=== PATIENT | male | born 1995 ===

== ENCOUNTER 2017-07-25 03:44 | Emergency (ER) | payer OTHER ==
--- NOTE | 2017-07-25 04:42 | C.PDOC ---
History Of Present Illness 22 y/o male presents with epigastric abdominal pain, started yesterday. pt was seen at [facility] on sat [place]24 morning, , had blood work and ct scan, d/c with pepcid. pt sts he took pepcid, but pain worse tonight. one episode of vomiting in ed, +nausea, no fever or chills. pain is stabbing,non radiating. labwork and ct scan results obtained (with pt's consent) from [facility]; ct scan with finding of possible acute epiploic appendagitis. labs from yesterday were normal. Time Seen by Provider: 07/25/17 04:05 Chief Complaint (Nursing): Abdominal Pain History Per: Patient, Family History/Exam Limitations: no limitations Onset/Duration Of Symptoms: Days (2) Current Symptoms Are (Timing): Worse Severity: Severe Pain Scale Rating Of: 9 Location Of Pain/Discomfort: Epigastric, LUQ Radiation Of Pain To:: None Quality Of Discomfort: Stabbing Associated Symptoms: Vomiting. denies: Fever, Chills, Diarrhea Past Medical History Reviewed: Historical Data, Nursing Documentation, Vital Signs Vital Signs: Last Vital Signs Temp 97.5 F L 07/25/17 03:48 Pulse 81 07/25/17 03:48 Resp 22 07/25/17 03:48 BP 155/73 H 07/25/17 03:48 Pulse Ox 100 07/25/17 06:12 - Medical History PMH: No Chronic Diseases Surgical History: No Surg Hx Family History: States: Unknown Family Hx - Social History Hx Tobacco Use: No Hx Alcohol Use: No Hx Substance Use: No - Immunization History Hx Tetanus Toxoid Vaccination: No Hx Influenza Vaccination: No Hx Pneumococcal Vaccination: No Review Of Systems Constitutional: Negative for: Fever, Chills Cardiovascular: Negative for: Chest Pain Respiratory: Negative for: Cough, Shortness of Breath Gastrointestinal: Positive for: Nausea, Vomiting, Abdominal Pain. Negative for : Diarrhea Genitourinary: Negative for: Dysuria Physical Exam - Physical Exam Appears: Non-toxic, In Acute Distress (writhing in pain on stretcher) Skin: Warm, Dry Head: Atraumatic, Normacephalic Eye(s): bilateral: Normal Inspection Chest: No Deformity, No Tenderness Cardiovascular: Rhythm Regular, No Murmur Respiratory: No Decreased Breath Sounds, No Wheezing Gastrointestinal/Abdominal: Bowel Sounds, Soft, Tenderness (tender in epigastric right and left upper quadrants), No Distention, No Guarding, No Rebound Back: No CVA Tenderness Extremity: No Tenderness, No Swelling Neurological/Psych: Oriented x3, Normal Speech, Normal Cognition, Normal Motor, Normal Sensation ED Course And Treatment - Laboratory Results Result Diagrams: 07/25/17 04:44 07/25/17 04:44 O2 Sat by Pulse Oximetry: 100 Medical Decision Making Medical Decision Making: consent form sent to [facility] requesting pt's ct scan and blood test results from visit on wednesday,. await fax. 647 am pt given protonix, maalox, cmpazine and zofran with little effect. pt given iv toradol and much more comfortable. pt has pain in ruq on re-exam, no muprhys sign. will order abdominal us and s/o to next team with possible surgical consult. Disposition - Disposition Disposition Time: 06:58 Condition: GOOD Forms: [facility] ([place]) - Clinical Impression Clinical Impression: Abdominal pain Physician Patient Turnover Patient Signed Over To: Mayelin Khan Handoff Comments: follow up abdomen ultrasound, re-eval pt for appropriate dispo
[2017-07-25 04:47] LABS: BASO % 0.3 % (0.0-2.0); EOS % 0.2 % (0.0-4.0); HEMOGLOBIN 15.8 g/dL (12.0-18.0); LYMPH # 2.3 K/uL (1.0-4.3); LYMPH % 15.8 % (20.0-40.0); MEAN CELL VOLUME 85.9 fL (80.0-94.0); MEAN CORPUSCULAR HEMOGLOBIN 29.4 pg (27.0-31.0); MEAN CORPUSCULAR HGB CONC 34.2 g/dL (33.0-37.0); MEAN PLATELET VOLUME 8.2 fL (7.2-11.7); MONO # 0.7 K/uL (0.0-0.8); MONO % 4.6 % (0.0-10.0); NEUT # 11.4 K/uL (1.8-7.0); NEUT % 79.1 % (50.0-75.0); RBC 5.39 Mil/uL (4.40-5.90); RED CELL DISTRIBUTION WIDTH 13.3 % (11.5-14.5); WHITE BLOOD COUNT 14.4 K/uL (4.8-10.8)
[2017-07-25 04:58] LABS: ALB/GLOB RATIO 1.2 (1.0-2.1); ALBUMIN 4.8 g/dL (3.5-5.0); ALT/SGPT 35 U/L (21-72); AST/SGOT 27 U/L (17-59); BLOOD UREA NITROGEN 11 mg/dL (9-20); CALCIUM 9.4 mg/dl (8.6-10.4); GFR AFRICAN-AMERICAN > 60; GFR NON-AFRICAN AMERICAN > 60; LIPASE 116 U/L (23-300)
[2017-07-25] MEDS ORDERED: Alum-Mag Hydrox-Simethicone Susp (30 mL) ONE (05:22)
[2017-07-25] MEDS ORDERED: Sucralfate 1 gm/10 ml Oral Susp UD ONE (05:22)
[2017-07-25] MEDS ORDERED: Aluminum Hydroxide/Magnesium Hydroxide Susp (30 mL) PO STA (05:48)
[2017-07-25 06:38] LABS: URINE AMORPHOUS SEDIMENT RARE /ul (<OCC); URINE BILIRUBIN NEGATIVE (NEGATIVE); URINE BLOOD NEGATIVE (NEGATIVE); URINE CLARITY Hazy (Clear); URINE COLOR Yellow (YELLOW); URINE GLUCOSE (UA) NORMAL (Normal); URINE LEUKOCYTE ESTERASE NEG Leu/uL (Negative); URINE PROTEIN NEGATIVE (NEGATIVE); URINE UROBILINOGEN NORMAL mg/dL (0.2-1.0)
[2017-07-25 06:49] LABS: BARBITURATES, UR NEGATIVE (NEGATIVE); BENZODIAZEPINES, UR NEGATIVE (NEGATIVE); OPIATES, UR NEGATIVE (NEGATIVE); PHENCYCLIDINE, UR NEGATIVE (NEGATIVE)
--- NOTE | 2017-07-25 09:02 | US ---
HISTORY: ruq pain, pos epiploic appendagiciits on ct COMPARISON: None. TECHNIQUE: Sonographic evaluation of the right upper quadrant of the abdomen. FINDINGS: LIVER: Measures 14.6 cm in length. Diffusely increased echogenicity of the liver parenchyma suggests diffuse fatty infiltration. No mass. No intrahepatic bile duct dilatation. GALLBLADDER: Gallbladder is mildly distended with cholelithiasis at the neck and mild mural thickening up to 4 mm. No pericholecystic fluid collection, reported sonographic Keene sign or pericholecystic fluid collection. Clinically correlate for potential cholecystitis nevertheless. COMMON BILE DUCT: Measures 5.0 mm. No stones. No dilatation. PANCREAS: The tail of the pancreas is obscured by overlying bowel gas with remainder unremarkable. RIGHT KIDNEY: Measures 11.2 cm in length. Normal echogenicity. No calculus, mass, or hydronephrosis. AORTA: No aneurysmal dilatation. IVC: Unremarkable. OTHER FINDINGS: None . IMPRESSION: 1. Hepatic steatosis suggested. 2. A distended gallbladder is identify with mild mural thickening as well as cholelithiasis at the dependent portion in the neck. No pericholecystic fluid collection or reported sonographic Keene's sign. Clinically correlate nevertheless for potential cholecystitis. 3. Partial imaging of the pancreas.
[2017-07-25 10:54] VITALS: PULSE 99; RESP 18; TEMP 97.9; O2SAT 99
[2017-07-25 11:27] VITALS: BP 102/60
== END 2017-07-25 11:30 | disposition home or self-care (01) ==
LOC: C.ER 03:44
DX: R10.11 Right upper quadrant pain (principal)
CPT/HCPCS: 76705; 80053; 80324; 80345; 80346; 80349; 80353; 80358; 80361; 81001; 83690; 83992; 85025; 96374; 96375; 99285; C9113; J0780; J1885; J2405

== ENCOUNTER 2017-09-14 05:43 | Day surgery (SDC) | payer OTHER ==
[2017-08-16 08:49] VITALS: BMI 29.8
[2017-09-14] MEDS ORDERED: Lidocaine Hydrochloride 20 ML INJ ONE (07:28)
[2017-09-14] MEDS ORDERED: Bupivacaine HCl 0.25% PF (30 ml) Inj ONE (07:29)
[2017-09-14] MEDS ORDERED: ceFAZolin IV 2 gm in Dextrose 2 GM/50 ML BAG IVPB ONE (07:29)
[2017-09-14] MEDS ORDERED: Rocuronium 10 mg/ml (5 ml) ONE ×2 (07:32→08:47)
[2017-09-14] MEDS ORDERED: Propofol 10 mg/ml Inj (20 ML) ONE (07:32)
[2017-09-14] MEDS ORDERED: Succinylcholine Chloride 20 mg/ml Syr (5 ml) IV ONE (07:32)
[2017-09-14] MEDS ORDERED: Neostigmine Methylsulfate 3mg/3ml Syringe IV ONE (07:32)
[2017-09-14] MEDS ORDERED: Midazolam 2 MG/2 ML VIAL ONE (07:32)
--- NOTE | 2017-09-14 09:52 | PCM.SURG1 ---
Surgeon's Initial Post Op Note - Surgeon's Notes Surgeon: Cherri Helms MD Cotton Bag Sewer: Karly Castellon, Surgical Nurse Cotton Bag Sewer. COLTON EpsteinY2 Pre-Operative Diagnosis: Cholelithiasis Operative Findings: gallbladder, gallstone Post-Operative Diagnosis: same Operation Performed: Laparoscopic robotic assisted cholecystectomy Specimen/Specimens Removed: gallbladder Estimated Blood Loss: EBL {In ML}: 5 Date of Surgery/Procedure: 09/14/17 Time of Surgery/Procedure: 08:00
[2017-09-14] MEDS: HYDROmorphone 0.5 mg/0.5 ml ISec IVP PRN ×2 (10:13→11:02)
[2017-09-14] MEDS ORDERED: Lactated Ringer's 1,000 ML IV ONE (11:03)
[2017-09-14 12:19] VITALS: PULSE 87; RESP 16
--- NOTE | 2017-09-14 14:03 | PCM.OP ---
Operative Report - Operative Report Date of Surgery/Procedure: 09/14/17 Time of Surgery/Procedure: 07:30 Surgeon: Cherri Helms MD Staffing Administrator: Mook Charles MD (PGY2 resident); Karly Anesthesia/Sedation: General; Lidocaine + Marcaine local anesthesia Pre-Operative Diagnosis: Symptomatic Cholelithiasis Post-Operative Diagnosis: Symptomatic cholelithiasis Indication for Surgery: This is a 22 year-old male otherwise healthy individual without any prior surgical history with recurrent symptomatic cholelithiasis with US confirmed gallstones. Details of HPI in chart. The patient understands the risks and benefits of the procedure as documented in the clinic chart but specifically risk of cystic duct leak and common bile duct injury and has consented to the procedure. Operative Findings: Non-inflamed Gladder. Mild peritoneal adhesions. Clips on cystic duct and cystic artery intact at end of case without bleeding or bile leak. Procedure/Operation Description: Procedure Performed: Laparoscopic, Robotic Assisted Cholecystectomy. Details of Operation: The patient was given a preoperative dose of Ancef 2g 20 minutes before the incision. SCD boots were placed for DVT prophylaxis. The patient voided in pre-op immediately prior to surgery and no funes was placed. An orogastric tube placed in order to empty the stomach after the induction of general anesthesia. Upper body warmer placed. The abdomen was prepped and draped in sterile fashion and in the Supra- umbilical midline, a circumlinear incision was made and the umbilical raphe was identified and the fascia was divided between clamps at its base entering the abdomen in an open fashion. A 11-mm trocar was inserted in the abdomen and the abdomen was insufflated to 15 mmHg pressure with CO2. An 8mm robotic 30-degree viewing scope was then inserted and the abdomen was generally inspected and there was not found to be any additional signs of pathology. An 8mm port was introduced through the 11mm laparoscopic port. In the right mid abdomen, two 8- mm robotic ports were placed after injection of local anesthetic under direct vision and another 8m robotic port in the left mid-upper abdomen was placed in the similar fashion. THe patient was placed in slight reverse trendelberg and right side up. A face protecting foam was placed over the patient's face and the robot was docked to the patient. Robotic instruments were then inserted under direct visualization. A prograsp retractor in the right lateral port, fenestrated bipolar in right medial port, and monopolar cautery in the left abdominal port. . The fundus of the gallbladder was identified beneath the liver edge and retracted to the right upper quadrant with the prograsp grasper and locked in place. The neck of the gallbladder was visualized. There were minimal omental adhesions to the gallbladder that were taken down with a cominbation of blunt dissection and monopolar hook cautery. The peritoneal attachments from the lateral portion of the gallbladder/cystic duct junction were gently dissected and divided to open up the Holmes of Calot. The Holmes of [place] was then dissected up onto the liver bed posterior to the gallbladder in order to ensure that this was the cystic duct and not tenting of the common bile duct. The peritoneal attachments on the medial portion of the gallbladder going up to the side of the liver were taken. The critical view was obtained. The duct was then doubly clipped and ligated and the clips were inspected. The cystic artery was identified and was divided between clips. The gallbladder was dissected free from the liver bed using electrocautery and placed this in an endo catch bag. Once this was done, the abdomen was reinspected. The clips were in good position on the cystic artery and duct stumps. Robotic instruments were withdrawn under direct vision and the robot was then undocked from the patient. Robotic Camera was resinserted throuhg the left abdominal port and gallbladder specimen was withdrawn through the umbilical port. Once this was done, the ports were removed from the abdomen and the abdomen was desufflated with air. The umbilical port was closed with a [id number] Vicryl suture and the skin incisions were closed with 4-0 Vicryl suturesand finally dermabond. The patient tolerated the procedure well and was extubated in the operating room and brought to recovery in stable condition. I was present throughout the procedure. Sponge, needle and instrument counts were correct. Estimated Blood Loss: 5 Complications: none Discharge & Condition: the patient was discharged from PACU in stable condition
[2017-09-14 14:39] VITALS: BP 112/77; TEMP 97.6; O2SAT 99
== END 2017-09-14 14:59 | disposition home or self-care (01) ==
LOC: C.SDS 05:43
PROVIDERS: ATTEND Surgery
DX: K80.10 Calculus of gallbladder with chronic cholecystitis without obstruction (principal)
CPT/HCPCS: 47562; 88304; J0690; J1170; J2001; J2250; J2704; J2710; J3010; J7120; S2900